=== PATIENT | female | born 1950 | race Caucasian/White ===

== ENCOUNTER 2022-01-21 01:52 | Inpatient (IN) ==
[2022-01-21] MEDS ORDERED: Ondansetron 4 MG/2 ML VIAL IVP PRN ×3 (02:41→22:03)
[2022-01-21] MEDS ORDERED: Melatonin 3 MG TABLET PO PRN (02:41)
[2022-01-21] MEDS ORDERED: Naloxone 0.4 MG/ML INJ IVP PRN ×3 (02:41→22:03)
[2022-01-21] MEDS ORDERED: Ringers Solution, Lactated 1,000 ML IVC SCH (03:00)
[2022-01-21] MEDS: Morphine Sulfate 2 MG/ML SYRINGE IVP PRN ×2 (03:30→15:51)
[2022-01-21] MEDS: Pantoprazole 40 MG VIAL IVP SCH ×2 (03:40→17:56)
[2022-01-21] MEDS: *HR* HYDROmorphone (PF) 1 MG/ML SYRINGE IVP PRN ×2 (04:24→21:51)
[2022-01-21] MEDS ORDERED: *HR* LORazepam 2 MG/ML VIAL IVP ONE (06:28)
[2022-01-21 07:14] LABS: Hematocrit 49.3 % (35.3-44.9); Mean Corpuscular HGB Conc 32.5 g/dL (31.6-35.5); Mean Corpuscular Hemoglobin 33.1 pg (28.0-33.3); Mean Corpuscular Volume 101.9 fL (83.0-100.0); Platelet Count 217 K/mcL (140-400); Red Blood Count 4.84 M/mcL (3.82-4.97); Red Cell Distribution Width 12.4 % (11.5-14.5)
[2022-01-21] MEDS ORDERED: Ondansetron 4 MG/2 ML VIAL ONE (07:15)
[2022-01-21] MEDS ORDERED: Lidocaine -MPF 2% 5 ML VIAL ONE (07:15)
[2022-01-21] MEDS ORDERED: *HR* Propofol 200 MG/20 ML VIAL IVP ONE (07:15)
[2022-01-21] MEDS ORDERED: *HR* FentaNYL (PF) 100 MCG/2 ML VIAL ONE (07:15)
[2022-01-21] MEDS ORDERED: *HR* Rocuronium Bromide 50 MG/5 ML VIAL ONE (07:15)
[2022-01-21] MEDS ORDERED: Acetaminophen IV 1,000 MG/100 ML BAG IVPB ONE (07:39)
[2022-01-21] MEDS ORDERED: Nitroglycerin 0.4 MG TAB.SUBL SL PRN (07:39)
[2022-01-21] MEDS ORDERED: Albuterol 2.5 MG/3 ML NEBULIZER IH PRN (07:39)
[2022-01-21 07:42] LABS: INR 1.2; Prothrombin Time 13.4 Seconds (9.4-12.1)
[2022-01-21 08:37] LABS: BUN/Creatinine Ratio 24 (6-26); Blood Urea Nitrogen 17 mg/dL (8-23); Carbon Dioxide 17 mEq/L (23-29); Chloride 106 mEq/L (98-107); Glucose 151 mg/dL (70-105); Magnesium 1.4 mg/dL (1.6-2.6); Osmolality,Calculated 296 (280-300); Phosphorous 3.5 mg/dL (2.7-4.5); Potassium 3.7 mEq/L (3.5-5.1); Sodium 141 mEq/L (136-145)
[2022-01-21] MEDS ORDERED: *HR* Phenylephrine 10 MG/ML VIAL ONE (08:38)
[2022-01-21 08:42] LABS: VBG Base Excess -7 mEq/L; VBG Chloride 104 mEq/L (98-107); VBG Glucose 143 mg/dl (65-95); VBG HCO3 20 mEq/L (21-27); VBG Ionized Calcium 1.15 mmol/L (1.15-1.35); VBG Oxygen Saturation 86 %; VBG PCO2 46 mmHg (41-51); VBG PH 7.25 pH Units (7.32-7.42); VBG PO2 59 mmHg (25-50); VBG Total CO2 21 mEq/L
[2022-01-21] MEDS: Piperacillin/Tazobactam 3.375 GM in 0.9 % Sodium Chloride Mini Bag 100 ML IVPB SCH ×2 (08:45→17:53)
[2022-01-21] MEDS ORDERED: *HR* Magnesium Sulfate 1 GM/2 ML VIAL ONE (09:17)
[2022-01-21] MEDS ORDERED: Lacri-Lube 3.5 GM TUBE ONE (09:24)
[2022-01-21] MEDS ORDERED: Sugammadex Sodium 200 MG/2 ML VIAL IV ONE (09:25)
[2022-01-21] MEDS ORDERED: *HR* Labetalol 20 MG/4 ML SYRINGE IVP ONE (10:28)
[2022-01-21] MEDS: *HR* Labetalol 20 MG/4 ML SYRINGE IVP PRN ×2 (10:29→10:54)
[2022-01-21] MEDS: *HR* FentaNYL (PF) 100 MCG/2 ML VIAL IVP PRN ×2 (11:11→11:25)
[2022-01-21] MEDS: *HR* Metoprolol 5 MG/5 ML VIAL IVP PRN ×5 (11:41→12:26)
[2022-01-21 13:52] LABS: BUN/Creatinine Ratio 24 (6-26); Blood Urea Nitrogen 14 mg/dL (8-23); Calcium 7.3 mg/dL (8.6-10.3); Carbon Dioxide 24 mEq/L (23-29); Chloride 106 mEq/L (98-107); Glucose 194 mg/dL (70-105); Magnesium 1.7 mg/dL (1.6-2.6); Osmolality,Calculated 292 (280-300); Potassium 3.3 mEq/L (3.5-5.1); Sodium 138 mEq/L (136-145)
[2022-01-21] MEDS ORDERED: *HR* Metoprolol 5 MG/5 ML VIAL IVP ONE ×2 (14:54→17:41)
[2022-01-21] MEDS ORDERED: *HR* Metoprolol 5 MG/5 ML VIAL IVP PRN (14:56)
[2022-01-21] MEDS: 0.9 % Sodium Chloride 1,000 ML IVC SCH ×2 (15:30→18:53)
[2022-01-21 15:51] LABS: Hematocrit 45.6 % (35.3-44.9); Hemoglobin 14.9 g/dL (11.5-15.4); Mean Corpuscular HGB Conc 32.7 g/dL (31.6-35.5); Mean Corpuscular Hemoglobin 32.6 pg (28.0-33.3); Mean Corpuscular Volume 99.8 fL (83.0-100.0); Platelet Count 208 K/mcL (140-400); Red Blood Count 4.57 M/mcL (3.82-4.97); Red Cell Distribution Width 12.6 % (11.5-14.5); White Blood Count 16.7 K/mcL (4.3-11.1)
[2022-01-21 16:46] LABS: Monocytes # 1.7 K/mcL (0.0-1.3)
[2022-01-21 16:47] LABS: Platelet Estimate Normal (Normal)
[2022-01-21] MEDS ORDERED: *HR* HYDROmorphone (PF) 1 MG/ML SYRINGE IVP PRN (22:03)
[2022-01-21] MEDS: Acetaminophen IV 1,000 MG/100 ML BAG IVPB SCH (22:45)
[2022-01-21] MEDS: *HR* Heparin 5,000 UNIT/ML VIAL SQ SCH (22:45)
[2022-01-21] MEDS: Pantoprazole 40 MG in 0.9 % Sodium Chloride Mini Bag 100 ML IVC SCH (22:46)
[2022-01-22] MEDS ORDERED: 0.9 % Sodium Chloride 1,000 ML IVC SCH (01:30)
[2022-01-22] MEDS: Piperacillin/Tazobactam 3.375 GM in 0.9 % Sodium Chloride Mini Bag 100 ML IVPB SCH ×3 (01:45→18:13)
[2022-01-22] MEDS ORDERED: 0.9 % Sodium Chloride 1,000 ML IVC ONE (01:57)
[2022-01-22] MEDS ORDERED: *HR* LORazepam 2 MG/ML VIAL ONE (03:03)
[2022-01-22 03:19] LABS: ABG Base Excess -3 mEq/L (-2 to 3); ABG HCO3 22 mEq/L (21-27); ABG Oxygen Saturation 100 % (95-98); ABG PCO2 39 mmHg (35-45); ABG PH 7.36 pH Units (7.32-7.45); ABG PO2 176 mmHg (85-104); ABG TCO2 24 mEq/L (20-26)
[2022-01-22] MEDS ORDERED: *HR* LORazepam 2 MG/ML VIAL IVP ONE (03:20)
[2022-01-22] MEDS: Pantoprazole 40 MG in 0.9 % Sodium Chloride Mini Bag 100 ML IVC SCH ×4 (03:46→21:35)
[2022-01-22 04:16] LABS: Calcium 6.9 mg/dL (8.6-10.3); Potassium 4.5 mEq/L (3.5-5.1)
[2022-01-22] MEDS: Acetaminophen IV 1,000 MG/100 ML BAG IVPB SCH ×4 (05:42→21:36)
[2022-01-22] MEDS: *HR* Heparin 5,000 UNIT/ML VIAL SQ SCH ×2 (05:46→18:13)
[2022-01-22] MEDS ORDERED: Calcium Gluconate 1gm/50mL 1 GM/50 ML BAG IVPB ONE (07:41)
[2022-01-22] MEDS ORDERED: *HR* HYDROmorphone (PF) 1 MG/ML SYRINGE IVP PRN (07:44)
[2022-01-22 08:55] LABS: Hematocrit 40.7 % (35.3-44.9); Immature Granulocytes % 0.5 % (0-4); Lymphocytes % 6.2 %; Mean Corpuscular HGB Conc 32.2 g/dL (31.6-35.5); Mean Corpuscular Hemoglobin 32.6 pg (28.0-33.3); Mean Corpuscular Volume 101.2 fL (83.0-100.0); Mean Platelet Volume 9.9 fL (9.4-12.4); Monocytes % 7.8 %; Platelet Count 155 K/mcL (140-400); Red Blood Count 4.02 M/mcL (3.82-4.97); Segmented Neutrophils % 85.4 %; White Blood Count 14.7 K/mcL (4.3-11.1)
[2022-01-22 08:56] LABS: Basophils % 0.1 %; Lymphocytes # 0.9 K/mcL (0.6-4.6); Monocytes # 1.2 K/mcL (0.0-1.3); Neutrophils # 12.6 K/mcL (1.6-8.9)
[2022-01-22 08:58] LABS: Hemoglobin 13.1 g/dL (11.5-15.4)
[2022-01-22] MEDS ORDERED: Ringers Solution, Lactated 1,000 ML IVC ONE (12:58)
[2022-01-22] MEDS ORDERED: Fluconazole 200 MG/100 ML 200 MG/100 ML BAG IVPB SCH (13:00)
[2022-01-22] MEDS: 0.9 % Sodium Chloride 1,000 ML IVC SCH (13:16)
[2022-01-22] MEDS: Fluconazole 200 MG/100 ML 200 MG/100 ML BAG IVPB SCH (16:14)
[2022-01-22] MEDS: *HR* Dextrose 50 % in Water (Syg) 50 ML SYRINGE IVP PRN ×2 (16:15→20:56)
[2022-01-22] MEDS ORDERED: *HR* Dextrose 50 % in Water (Syg) 50 ML SYRINGE ONE (16:15)
[2022-01-22] MEDS ORDERED: Dextrose Gel 15 GM/37.5 ML TUBE PO PRN ×2 (16:23)
[2022-01-22] MEDS ORDERED: D5% in Water 1,000 ML IVC PRN (16:23)
[2022-01-22 17:46] LABS: Bacteria,Urine Few per hpf (None-Few); Bilirubin,Urine Negative (Negative); Blood,Urine Moderate (Negative); Clarity,Urine Clear (Clear); Color,Urine Light-Yellow (Yellow); Glucose,Urine (UA) 500 mg/dL (Normal); Ketones,Urine 40 mg/dL (Negative); Leukocyte Esterase,Urine Negative (Negative); Mucus,Urine Few per lpf (None-Few); Nitrite,Urine Negative (Negative); Protein,Urine Trace mg/dL (Neg-Trace); RBC,Urine 15-30 per hpf (0-3); Specific Gravity,Urine > 1.030 (1.010-1.025); Squamous Epithelial Cell,Urine Few per hpf (None-Few); Urobilinogen,Urine Normal (Normal)
[2022-01-23] MEDS: Pantoprazole 40 MG in 0.9 % Sodium Chloride Mini Bag 100 ML IVC SCH ×5 (01:48→20:00)
[2022-01-23] MEDS: Piperacillin/Tazobactam 3.375 GM in 0.9 % Sodium Chloride Mini Bag 100 ML IVPB SCH ×3 (01:48→17:18)
[2022-01-23] MEDS: 0.9 % Sodium Chloride 1,000 ML IVC SCH (02:56)
[2022-01-23] MEDS: *HR* Heparin 5,000 UNIT/ML VIAL SQ SCH ×2 (05:41→18:37)
[2022-01-23] MEDS: *HR* Dextrose 50 % in Water (Syg) 50 ML SYRINGE IVP PRN ×2 (05:41→20:53)
[2022-01-23] MEDS: Acetaminophen IV 1,000 MG/100 ML BAG IVPB SCH ×4 (05:42→20:54)
[2022-01-23] MEDS ORDERED: *HR* Metoprolol 5 MG/5 ML VIAL IVP ONE (07:51)
[2022-01-23 10:33] LABS: Basophils % 0.2 %; Hematocrit 39.9 % (35.3-44.9); Hemoglobin 13.1 g/dL (11.5-15.4); Immature Granulocytes % 0.6 % (0-4); Lymphocytes # 0.5 K/mcL (0.6-4.6); Lymphocytes % 4.1 %; Mean Corpuscular HGB Conc 32.8 g/dL (31.6-35.5); Mean Corpuscular Hemoglobin 33.1 pg (28.0-33.3); Mean Corpuscular Volume 100.8 fL (83.0-100.0); Mean Platelet Volume 10.2 fL (9.4-12.4); Monocytes # 0.7 K/mcL (0.0-1.3); Monocytes % 5.2 %; Neutrophils # 11.9 K/mcL (1.6-8.9); Platelet Count 161 K/mcL (140-400); Red Blood Count 3.96 M/mcL (3.82-4.97); Red Cell Distribution Width 13.1 % (11.5-14.5); Segmented Neutrophils % 89.9 %; White Blood Count 13.2 K/mcL (4.3-11.1)
[2022-01-23 10:45] LABS: Magnesium 1.8 mg/dL (1.6-2.6); Phosphorous 1.2 mg/dL (2.7-4.5)
[2022-01-23 10:50] LABS: BUN/Creatinine Ratio 19 (6-26); Blood Urea Nitrogen 12 mg/dL (8-23); Carbon Dioxide 26 mEq/L (23-29); Chloride 111 mEq/L (98-107); Glucose 97 mg/dL (70-105); Osmolality,Calculated 288 (280-300); Sodium 139 mEq/L (136-145)
[2022-01-23] MEDS ORDERED: Potassium Phosphate 44 MEQ in 0.9 % Sodium Chloride 250 ML IVPB ONE (11:55)
[2022-01-23] MEDS ORDERED: Iopamidol - 370 500 ML MLS IVP ONE (11:56)
[2022-01-23] MEDS ORDERED: Ipratropium Neb 0.5 MG NEBULIZER IH PRN (15:19)
[2022-01-23] MEDS: Fluconazole 200 MG/100 ML 200 MG/100 ML BAG IVPB SCH (17:06)
[2022-01-23] MEDS: Levalbuterol Neb 0.63 MG/3 ML IH SCH (23:04)
[2022-01-24] MEDS: Pantoprazole 40 MG in 0.9 % Sodium Chloride Mini Bag 100 ML IVC SCH ×5 (00:55→22:00)
[2022-01-24] MEDS: Piperacillin/Tazobactam 3.375 GM in 0.9 % Sodium Chloride Mini Bag 100 ML IVPB SCH ×3 (01:00→18:39)
[2022-01-24] MEDS: Acetaminophen IV 1,000 MG/100 ML BAG IVPB SCH ×4 (05:01→21:58)
[2022-01-24 05:56] LABS: Basophils % 0.3 %; Eosinophils % 0.3 %; Hematocrit 35.4 % (35.3-44.9); Immature Granulocytes % 0.4 % (0-4); Lymphocytes # 0.8 K/mcL (0.6-4.6); Lymphocytes % 7.2 %; Mean Corpuscular HGB Conc 32.5 g/dL (31.6-35.5); Mean Corpuscular Hemoglobin 32.6 pg (28.0-33.3); Mean Corpuscular Volume 100.3 fL (83.0-100.0); Mean Platelet Volume 10.3 fL (9.4-12.4); Monocytes # 0.9 K/mcL (0.0-1.3); Monocytes % 8.1 %; Neutrophils # 9.1 K/mcL (1.6-8.9); Platelet Count 154 K/mcL (140-400); Red Blood Count 3.53 M/mcL (3.82-4.97); Red Cell Distribution Width 13.2 % (11.5-14.5); Segmented Neutrophils % 83.7 %; White Blood Count 10.8 K/mcL (4.3-11.1)
[2022-01-24 06:03] LABS: Hemoglobin 11.5 g/dL (11.5-15.4)
[2022-01-24 06:22] LABS: BUN/Creatinine Ratio 18 (6-26); Blood Urea Nitrogen 11 mg/dL (8-23); Calcium 6.8 mg/dL (8.6-10.3); Carbon Dioxide 22 mEq/L (23-29); Chloride 111 mEq/L (98-107); Glucose 66 mg/dL (70-105); Magnesium 1.9 mg/dL (1.6-2.6); Osmolality,Calculated 288 (280-300); Phosphorous 1.8 mg/dL (2.7-4.5); Potassium 3.6 mEq/L (3.5-5.1); Sodium 140 mEq/L (136-145); Vancomycin,Trough 7 mcg/mL (5-10)
[2022-01-24] MEDS: *HR* Heparin 5,000 UNIT/ML VIAL SQ SCH ×2 (06:48→18:40)
[2022-01-24] MEDS ORDERED: Potassium Phosphate 44 MEQ in 0.9 % Sodium Chloride 250 ML IVPB ONE (08:10)
[2022-01-24] MEDS ORDERED: Furosemide 20 MG/2 ML VIAL IVP ONE (08:11)
[2022-01-24] MEDS ORDERED: Calcium Gluconate 1gm/50mL 1 GM/50 ML BAG IVPB ONE (08:13)
[2022-01-24] MEDS ORDERED: 0.9 % Sodium Chloride 1,000 ML IVC SCH (08:15)
[2022-01-24] MEDS: Levalbuterol Neb 0.63 MG/3 ML IH SCH ×2 (10:13→20:02)
[2022-01-24] MEDS ORDERED: *HR* Metoprolol 5 MG/5 ML VIAL IVP ONE (10:57)
[2022-01-24] MEDS: 0.9 % Sodium Chloride 1,000 ML IVC SCH ×2 (11:10→20:19)
[2022-01-24] MEDS: *HR* Dextrose 50 % in Water (Syg) 50 ML SYRINGE IVP PRN (11:44)
[2022-01-24] MEDS: Fluconazole 200 MG/100 ML 200 MG/100 ML BAG IVPB SCH (15:49)
[2022-01-25] MEDS: Piperacillin/Tazobactam 3.375 GM in 0.9 % Sodium Chloride Mini Bag 100 ML IVPB SCH ×2 (01:12→08:10)
[2022-01-25] MEDS: Pantoprazole 40 MG in 0.9 % Sodium Chloride Mini Bag 100 ML IVC SCH ×2 (02:47→08:09)
[2022-01-25] MEDS: Acetaminophen IV 1,000 MG/100 ML BAG IVPB SCH ×4 (03:11→22:09)
[2022-01-25 03:37] LABS: Basophils % 0.2 %; Eosinophils # 0.1 K/mcL (0.0-0.6); Hematocrit 33.9 % (35.3-44.9); Hemoglobin 11.2 g/dL (11.5-15.4); Immature Granulocytes % 0.6 % (0-4); Lymphocytes # 1.2 K/mcL (0.6-4.6); Lymphocytes % 12.9 %; Mean Corpuscular Hemoglobin 32.9 pg (28.0-33.3); Mean Corpuscular Volume 99.7 fL (83.0-100.0); Mean Platelet Volume 10.1 fL (9.4-12.4); Monocytes # 0.9 K/mcL (0.0-1.3); Neutrophils # 6.7 K/mcL (1.6-8.9); Platelet Count 171 K/mcL (140-400); Red Cell Distribution Width 13.7 % (11.5-14.5); Segmented Neutrophils % 75.3 %; White Blood Count 8.9 K/mcL (4.3-11.1)
[2022-01-25 04:00] LABS: Magnesium 1.4 mg/dL (1.6-2.6); Phosphorous 1.8 mg/dL (2.7-4.5)
[2022-01-25 04:01] LABS: BUN/Creatinine Ratio 15 (6-26); Blood Urea Nitrogen 8 mg/dL (8-23); Calcium 6.6 mg/dL (8.6-10.3); Carbon Dioxide 24 mEq/L (23-29); Chloride 110 mEq/L (98-107); Glucose 87 mg/dL (70-105); Osmolality,Calculated 290 (280-300); Potassium 3.2 mEq/L (3.5-5.1); Sodium 141 mEq/L (136-145)
[2022-01-25] MEDS: *HR* Heparin 5,000 UNIT/ML VIAL SQ SCH ×2 (05:07→17:59)
[2022-01-25] MEDS: 0.9 % Sodium Chloride 1,000 ML IVC SCH (05:27)
[2022-01-25] MEDS: Levalbuterol Neb 0.63 MG/3 ML IH SCH ×2 (07:35→20:17)
[2022-01-25] MEDS ORDERED: Potassium Chloride Elixir 20 MEQ/15 ML UDC PO ONE (09:17)
[2022-01-25] MEDS ORDERED: Potassium Phosphate 44 MEQ in 0.9 % Sodium Chloride 250 ML IVPB ONE (11:26)
[2022-01-25] MEDS: hydroCHLOROthiazide 25 MG TABLET PO SCH (11:38)
[2022-01-25 12:10] LABS: RBC,Pleural Fluid < 2000 RBC/mcL
[2022-01-25 14:42] LABS: Appearance of Pleural Fl Clear (Clear)
[2022-01-25] MEDS: Calcium Gluconate 1gm/50mL 1 GM/50 ML BAG IVPB SCH ×2 (16:02→16:46)
[2022-01-25] MEDS: Pantoprazole 40 MG VIAL IVP SCH (17:56)
[2022-01-25] MEDS: Fluconazole 200 MG/100 ML 200 MG/100 ML BAG IVPB SCH (21:54)
[2022-01-26] MEDS: Acetaminophen IV 1,000 MG/100 ML BAG IVPB SCH (04:41)
[2022-01-26 06:03] LABS: Basophils % 0.4 %; Eosinophils # 0.1 K/mcL (0.0-0.6); Eosinophils % 1.8 %; Hematocrit 37.3 % (35.3-44.9); Hemoglobin 12.3 g/dL (11.5-15.4); Immature Granulocytes % 1.2 % (0-4); Lymphocytes # 1.5 K/mcL (0.6-4.6); Mean Corpuscular Hemoglobin 32.2 pg (28.0-33.3); Mean Corpuscular Volume 97.6 fL (83.0-100.0); Mean Platelet Volume 10.6 fL (9.4-12.4); Monocytes # 0.8 K/mcL (0.0-1.3); Monocytes % 10.8 %; Neutrophils # 4.9 K/mcL (1.6-8.9); Platelet Count 198 K/mcL (140-400); Red Blood Count 3.82 M/mcL (3.82-4.97); Red Cell Distribution Width 13.8 % (11.5-14.5); Segmented Neutrophils % 65.8 %; White Blood Count 7.4 K/mcL (4.3-11.1)
[2022-01-26 06:29] LABS: BUN/Creatinine Ratio 17 (6-26); Blood Urea Nitrogen 8 mg/dL (8-23); Calcium 7.7 mg/dL (8.6-10.3); Carbon Dioxide 29 mEq/L (23-29); Chloride 107 mEq/L (98-107); Glucose 113 mg/dL (70-105); Magnesium 1.4 mg/dL (1.6-2.6); Osmolality,Calculated 291 (280-300); Potassium 3.7 mEq/L (3.5-5.1); Sodium 141 mEq/L (136-145)
[2022-01-26] MEDS: *HR* Heparin 5,000 UNIT/ML VIAL SQ SCH ×2 (06:37→17:24)
[2022-01-26] MEDS: Pantoprazole 40 MG VIAL IVP SCH ×2 (06:38→17:24)
[2022-01-26] MEDS: Levalbuterol Neb 0.63 MG/3 ML IH SCH ×2 (07:53→22:19)
[2022-01-26] MEDS: hydroCHLOROthiazide 25 MG TABLET PO SCH (08:44)
[2022-01-26] MEDS: Piperacillin/Tazobactam 3.375 GM in 0.9 % Sodium Chloride Mini Bag 100 ML IVPB SCH ×2 (12:17→17:00)
[2022-01-26] MEDS ORDERED: Potassium Phosphate 44 MEQ in 0.9 % Sodium Chloride 250 ML IVPB ONE (14:49)
[2022-01-26] MEDS ORDERED: Ipratropium/Albuterol Neb 3 ML IH SCH (16:00)
[2022-01-26] MEDS: Ipratropium/Albuterol Neb 3 ML IH SCH ×2 (16:09→22:20)
[2022-01-26] MEDS: Fluconazole 200 MG/100 ML 200 MG/100 ML BAG IVPB SCH (17:21)
[2022-01-26] MEDS: Metoprolol XL (24 HR) Succ 50 MG TAB.ER.24H PO SCH (20:03)
[2022-01-26 22:22] LABS: Fluid Source for Albumin PLEURAL FL
[2022-01-27] MEDS: Piperacillin/Tazobactam 3.375 GM in 0.9 % Sodium Chloride Mini Bag 100 ML IVPB SCH ×3 (00:23→17:24)
[2022-01-27] MEDS: *HR* Heparin 5,000 UNIT/ML VIAL SQ SCH ×2 (05:51→17:27)
[2022-01-27] MEDS: Pantoprazole 40 MG VIAL IVP SCH ×2 (05:51→17:28)
[2022-01-27 06:25] LABS: Basophils % 0.4 %; Eosinophils # 0.2 K/mcL (0.0-0.6); Eosinophils % 1.8 %; Hematocrit 33.3 % (35.3-44.9); Hemoglobin 11.2 g/dL (11.5-15.4); Immature Granulocytes % 2.9 % (0-4); Lymphocytes # 1.6 K/mcL (0.6-4.6); Mean Corpuscular HGB Conc 33.6 g/dL (31.6-35.5); Mean Corpuscular Volume 98.2 fL (83.0-100.0); Mean Platelet Volume 9.8 fL (9.4-12.4); Monocytes % 11.1 %; Nucleated Red Blood Cells 0.2 /100 WBC (0); Platelet Count 210 K/mcL (140-400); Red Blood Count 3.39 M/mcL (3.82-4.97); Red Cell Distribution Width 14.1 % (11.5-14.5); Segmented Neutrophils % 65.8 %; White Blood Count 9.1 K/mcL (4.3-11.1)
[2022-01-27] MEDS: hydroCHLOROthiazide 25 MG TABLET PO SCH (07:51)
[2022-01-27] MEDS: Metoprolol XL (24 HR) Succ 50 MG TAB.ER.24H PO SCH ×2 (07:52→19:56)
[2022-01-27] MEDS: Ipratropium/Albuterol Neb 3 ML IH SCH ×2 (07:56→16:03)
[2022-01-27 08:50] LABS: BUN/Creatinine Ratio 18 (6-26); Blood Urea Nitrogen 11 mg/dL (8-23); Calcium 7.3 mg/dL (8.6-10.3); Carbon Dioxide 28 mEq/L (23-29); Chloride 106 mEq/L (98-107); Glucose 100 mg/dL (70-105); Osmolality,Calculated 293 (280-300); Potassium 3.5 mEq/L (3.5-5.1); Sodium 142 mEq/L (136-145)
[2022-01-27] MEDS: Levalbuterol Neb 0.63 MG/3 ML IH SCH ×2 (10:27→22:47)
[2022-01-27] MEDS: Pantoprazole 40 MG in 0.9 % Sodium Chloride Mini Bag 100 ML IVC SCH (13:05)
[2022-01-27] MEDS: Calcium Gluconate 1gm/50mL 1 GM/50 ML BAG IVPB SCH (13:06)
[2022-01-27] MEDS: Fluconazole 200 MG/100 ML 200 MG/100 ML BAG IVPB SCH (17:25)
[2022-01-28 03:33] LABS: Hematocrit 32.1 % (35.3-44.9); Hemoglobin 10.5 g/dL (11.5-15.4); Mean Corpuscular HGB Conc 32.7 g/dL (31.6-35.5); Mean Corpuscular Hemoglobin 32.4 pg (28.0-33.3); Mean Corpuscular Volume 99.1 fL (83.0-100.0); Mean Platelet Volume 9.8 fL (9.4-12.4); Platelet Count 231 K/mcL (140-400); Red Blood Count 3.24 M/mcL (3.82-4.97); Red Cell Distribution Width 14.1 % (11.5-14.5); White Blood Count 7.5 K/mcL (4.3-11.1)
[2022-01-28 03:48] LABS: BUN/Creatinine Ratio 22 (6-26); Blood Urea Nitrogen 13 mg/dL (8-23); Calcium 7.4 mg/dL (8.6-10.3); Carbon Dioxide 29 mEq/L (23-29); Chloride 106 mEq/L (98-107); Glucose 97 mg/dL (70-105); Osmolality,Calculated 292 (280-300); Potassium 3.7 mEq/L (3.5-5.1); Sodium 141 mEq/L (136-145)
[2022-01-28 05:25] LABS: Lymphocytes # 2.9 K/mcL (0.6-4.6); Monocytes # 0.2 K/mcL (0.0-1.3); Neutrophils # 4.5 K/mcL (1.6-8.9); Reactive Lymphocytes Present (Not Present)
[2022-01-28 05:26] LABS: Platelet Estimate Normal (Normal)
[2022-01-28] MEDS: Pantoprazole 40 MG VIAL IVP SCH ×2 (05:33→17:17)
[2022-01-28] MEDS: *HR* Heparin 5,000 UNIT/ML VIAL SQ SCH ×2 (05:33→17:17)
[2022-01-28] MEDS: Levalbuterol Neb 0.63 MG/3 ML IH SCH ×2 (08:00→22:29)
[2022-01-28] MEDS: Metoprolol XL (24 HR) Succ 50 MG TAB.ER.24H PO SCH ×2 (08:28→19:58)
[2022-01-28] MEDS: hydroCHLOROthiazide 25 MG TABLET PO SCH (08:28)
[2022-01-28] MEDS: Amoxicillin/Clavulanate 500 MG TABLET PO SCH ×2 (08:29→17:17)
[2022-01-28] MEDS ORDERED: Fluconazole 100 MG TABLET PO SCH (09:00)
[2022-01-28 17:05] LABS: Influenza A PCR Negative (Negative); Influenza B PCR Negative (Negative); Resp. Syncytial Virus PCR Negative (Negative)
[2022-01-28 17:07] LABS: SARS-CoV-2 by PCR (In House) Positive (Negative)
[2022-01-28] MEDS: Calcium Gluconate 1gm/50mL 1 GM/50 ML BAG IVPB SCH ×2 (17:53→18:54)
[2022-01-29 02:49] LABS: BUN/Creatinine Ratio 23 (6-26); Blood Urea Nitrogen 13 mg/dL (8-23); Calcium 7.9 mg/dL (8.6-10.3); Carbon Dioxide 27 mEq/L (23-29); Chloride 106 mEq/L (98-107); Glucose 102 mg/dL (70-105); Osmolality,Calculated 288 (280-300); Potassium 4.1 mEq/L (3.5-5.1); Sodium 139 mEq/L (136-145)
[2022-01-29] MEDS: *HR* Heparin 5,000 UNIT/ML VIAL SQ SCH ×2 (05:38→17:17)
[2022-01-29] MEDS: Pantoprazole 40 MG VIAL IVP SCH ×2 (05:38→17:17)
[2022-01-29] MEDS: Levalbuterol Neb 0.63 MG/3 ML IH SCH ×2 (07:19→20:24)
[2022-01-29] MEDS: hydroCHLOROthiazide 25 MG TABLET PO SCH (07:47)
[2022-01-29] MEDS: Metoprolol XL (24 HR) Succ 50 MG TAB.ER.24H PO SCH ×2 (07:47→20:06)
[2022-01-30] MEDS: Pantoprazole 40 MG VIAL IVP SCH ×2 (06:04→17:02)
[2022-01-30] MEDS: *HR* Heparin 5,000 UNIT/ML VIAL SQ SCH ×2 (06:04→17:02)
[2022-01-30] MEDS: hydroCHLOROthiazide 25 MG TABLET PO SCH (09:18)
[2022-01-30] MEDS: Metoprolol XL (24 HR) Succ 50 MG TAB.ER.24H PO SCH ×2 (09:18→21:13)
[2022-01-30] MEDS: Levalbuterol 1 PUFF INHALER IH SCH ×2 (11:23→22:03)
[2022-01-31] MEDS: *HR* Heparin 5,000 UNIT/ML VIAL SQ SCH ×2 (06:05→16:09)
[2022-01-31] MEDS: Pantoprazole 40 MG VIAL IVP SCH ×2 (06:05→16:09)
[2022-01-31] MEDS: Levalbuterol 1 PUFF INHALER IH SCH ×2 (07:59→20:03)
[2022-01-31] MEDS: Metoprolol XL (24 HR) Succ 50 MG TAB.ER.24H PO SCH ×3 (09:57→20:47)
[2022-01-31] MEDS: hydroCHLOROthiazide 25 MG TABLET PO SCH (09:57)
[2022-02-01] MEDS: *HR* Heparin 5,000 UNIT/ML VIAL SQ SCH ×2 (05:15→17:47)
[2022-02-01] MEDS: Pantoprazole 40 MG VIAL IVP SCH ×2 (05:15→17:47)
[2022-02-01] MEDS: Levalbuterol 1 PUFF INHALER IH SCH ×2 (07:29→22:41)
[2022-02-01] MEDS: hydroCHLOROthiazide 25 MG TABLET PO SCH (08:26)
[2022-02-01] MEDS: Metoprolol XL (24 HR) Succ 50 MG TAB.ER.24H PO SCH ×2 (09:19→21:41)
[2022-02-01] MEDS: Fluconazole 100 MG TABLET PO SCH (13:27)
[2022-02-02] MEDS: Pantoprazole 40 MG VIAL IVP SCH ×2 (05:29→18:10)
[2022-02-02] MEDS: *HR* Heparin 5,000 UNIT/ML VIAL SQ SCH ×2 (05:29→18:10)
[2022-02-02] MEDS: hydroCHLOROthiazide 25 MG TABLET PO SCH (09:33)
[2022-02-02] MEDS: Metoprolol XL (24 HR) Succ 50 MG TAB.ER.24H PO SCH ×2 (09:33→20:53)
[2022-02-02] MEDS: Levalbuterol 1 PUFF INHALER IH SCH ×2 (11:14→23:14)
[2022-02-02 11:26] LABS: Magnesium 1.8 mg/dL (1.6-2.6)
[2022-02-02] MEDS: Fluconazole 100 MG TABLET PO SCH (12:17)
[2022-02-02 12:38] LABS: Basophils % 0.2 %; Eosinophils % 0.2 %; Hematocrit 37.3 % (35.3-44.9); Immature Granulocytes % 0.7 % (0-4); Lymphocytes # 1.1 K/mcL (0.6-4.6); Lymphocytes % 4.8 %; Mean Corpuscular HGB Conc 32.2 g/dL (31.6-35.5); Mean Corpuscular Hemoglobin 32.5 pg (28.0-33.3); Mean Corpuscular Volume 101.1 fL (83.0-100.0); Monocytes # 1.3 K/mcL (0.0-1.3); Monocytes % 5.7 %; Platelet Count 569 K/mcL (140-400); Red Blood Count 3.69 M/mcL (3.82-4.97); Red Cell Distribution Width 13.9 % (11.5-14.5); Segmented Neutrophils % 88.4 %
[2022-02-02 12:40] LABS: Thyroid Stimulating Hormone 0.477 mcIU/mL (0.340-5.600)
[2022-02-02 12:42] LABS: Basophils # 0.1 K/mcL (0.0-0.2); Eosinophils # 0.1 K/mcL (0.0-0.6); White Blood Count 22.6 K/mcL (4.3-11.1)
[2022-02-02 18:20] LABS: Potassium 4.3 mEq/L (3.5-5.1)
[2022-02-03 01:47] LABS: Basophils # 0.1 K/mcL (0.0-0.2); Basophils % 0.4 %; Eosinophils # 0.1 K/mcL (0.0-0.6); Eosinophils % 0.7 %; Hematocrit 37.6 % (35.3-44.9); Hemoglobin 12.3 g/dL (11.5-15.4); Immature Granulocytes % 0.8 % (0-4); Lymphocytes # 1.4 K/mcL (0.6-4.6); Lymphocytes % 9.5 %; Mean Corpuscular HGB Conc 32.7 g/dL (31.6-35.5); Mean Corpuscular Hemoglobin 32.9 pg (28.0-33.3); Mean Corpuscular Volume 100.5 fL (83.0-100.0); Mean Platelet Volume 9.1 fL (9.4-12.4); Monocytes # 1.1 K/mcL (0.0-1.3); Monocytes % 7.9 %; Neutrophils # 11.5 K/mcL (1.6-8.9); Platelet Count 570 K/mcL (140-400); Red Blood Count 3.74 M/mcL (3.82-4.97); Segmented Neutrophils % 80.7 %; White Blood Count 14.2 K/mcL (4.3-11.1)
[2022-02-03 02:01] LABS: BUN/Creatinine Ratio 29 (6-26); Blood Urea Nitrogen 20 mg/dL (8-23); Calcium 8.5 mg/dL (8.6-10.3); Carbon Dioxide 27 mEq/L (23-29); Chloride 102 mEq/L (98-107); Glucose 107 mg/dL (70-105); Osmolality,Calculated 289 (280-300); Potassium 3.6 mEq/L (3.5-5.1); Sodium 138 mEq/L (136-145)
[2022-02-03] MEDS: Pantoprazole 40 MG VIAL IVP SCH ×2 (05:41→16:16)
[2022-02-03] MEDS: *HR* Heparin 5,000 UNIT/ML VIAL SQ SCH (05:42)
[2022-02-03] MEDS: hydroCHLOROthiazide 25 MG TABLET PO SCH (07:22)
[2022-02-03] MEDS: Metoprolol XL (24 HR) Succ 50 MG TAB.ER.24H PO SCH ×2 (07:31→20:42)
[2022-02-03] MEDS: Levalbuterol 1 PUFF INHALER IH SCH (08:00)
[2022-02-03] MEDS ORDERED: Ipratropium/Albuterol Neb 3 ML IH PRN (10:39)
[2022-02-03] MEDS: Fluconazole 100 MG TABLET PO SCH (11:57)
[2022-02-04] MEDS: Pantoprazole 40 MG VIAL IVP SCH (05:32)
[2022-02-04] MEDS: hydroCHLOROthiazide 25 MG TABLET PO SCH (08:34)
[2022-02-04] MEDS: Metoprolol XL (24 HR) Succ 50 MG TAB.ER.24H PO SCH (08:35)
[2022-02-04 10:21] VITALS: BP 100/64; PULSE 103; TEMP 98; O2SAT 96
[2022-02-04] MEDS: Fluconazole 100 MG TABLET PO SCH (11:02)
== END 2022-02-04 15:29 | DRG 853 ==
LOC: 3NENU → SUATTDRO 02:41 → 2NNU 21:34 → 3BNU 01-27 12:29
PROVIDERS: ADMIT Internal Medicine; ATTEND Internal Medicine